=== PATIENT | female | born 1960 | race Caucasian/White ===

== ENCOUNTER 2016-11-25 07:42 | Emergency (ER) | payer OTHER ==
[~2016-11-25] VITALS: Ht 172.7 cm; Wt 98.7 kg
[~2016-11-25 07:42] MED LIST: FLEXERIL10 MG PO; MOTRIN800 MG PO; ULTRAM50 MG PO
[2016-11-25 08:40] LABS: HEMATOCRIT 39.7 % (36.0-46.0); MCH 30.8 PG (29.0-34.0); MCV 90.6 FL (83-99); MEAN PLAT.VOLUME 8.8 uM^3 (9.5-12.4); PLATELET COUNT 194 K/uL (156-360); RBC DIS.WIDTH-CV 12.2 % (11.8-14.6); RBC DIS.WIDTH-SD 40.5 % (39-53); RED BLOOD COUNT 4.38 M/uL (3.80-5.20)
[2016-11-25 09:35] LABS: ALKALINE PHOSPHATASE 67 IU/L (3-129); ANION GAP 8 MEQ/L (2-14); CHLORIDE 103 MEQ/L (99-109); GFR ESTIMATE (CALCULATED) > 59 mL/min/; GLUCOSE 119 mg/dL (70-99); LIPASE 16 U/L (1.0-51.0); POTASSIUM 3.8 MEQ/L (3.7-5.4); SAMPLE HEMOLYSIS CHECK 0; SAMPLE ICTERIC CHECK 0; SAMPLE LIPEMIA CHECK 0; SODIUM 139 MEQ/L (136-147); TOTAL BILIRUBIN 0.4 MG/DL (0.0-1.0); UREA NITROGEN (BUN) 16 mg/dL (9-23)
[2016-11-25 09:49] LABS: ADD MIUA? YES; BILIRUBIN NEGATIVE; BLOOD SMALL; COLOR YELLOW ((YELLOW)); GLUCOSE (STRIP) NEGATIVE; KETONES NEGATIVE; LEUKOCYTES NEGATIVE; NITRITE NEGATIVE; PROTEIN (STRIP) NEGATIVE; SPECIFIC GRAVITY 1.024 (1.000-1.030); UROBILINOGEN 0.2 MG/DL (0.2-1.0)
[2016-11-25 09:52] LABS: BACTERIA NONE SEEN /HPF; EPITHELIAL CELLS RARE /HPF; MUCUS 1+ /LPF; RED BLOOD CELLS 0-5 /HPF (0-5); WHITE BLOOD CELLS 0-5 /HPF (0-5)
[2016-11-25] MEDS ORDERED: CIPRO500 MG PO (11:35)
[2016-11-25] MEDS ORDERED: BENTYL20 MG PO (11:35)
[2016-11-25] MEDS ORDERED: ZOFRAN ODT4 MG PO (11:35)
[2016-11-25] MEDS ORDERED: FLAGYL500 MG PO (11:35)
[2016-11-25] MEDS ORDERED: NORCO 5/3251 TABLET PO (11:35)
[2016-11-25 11:57] VITALS: BP 146/83
== END 2016-11-25 12:32 | disposition home or self-care (01) ==
LOC: EME 07:42
PROVIDERS: Nurse Practitioner Family
DX: K52.9 Noninfective gastroenteritis and colitis, unspecified (principal); I10 Essential (primary) hypertension; D72.819 Decreased white blood cell count, unspecified; R31.9 Hematuria, unspecified; Z72.0 Tobacco use
CPT/HCPCS: 74177; 80053; 81003; 83690; 85027; 87040; 87493; 99281; 99285; C9113; J2405; J3010; J7040